=== PATIENT | female | born 1995 | race Caucasian/White ===

== ENCOUNTER 2016-08-25 19:06 | Emergency (ER) | payer SELFPAY ==
[~2016-08-25] VITALS: Ht 165.1 cm; Wt 72.6 kg
--- NOTE | 2016-08-25 19:12 | NUR ---
PT TO ER BED 09. PRESENTS W/ L ANKLE PAIN SWELLING W/ NOTED BRUISING S/P SLIP AND FALL AT MIDNIGHT. PT DENIES HEAD TRAUMA. STABLE VITALS. AWAITING MD MOMIN.
--- NOTE | 2016-08-25 19:21 | NUR ---
DR SINEGR AT BEDSIDE FOR EVAL.
--- NOTE | 2016-08-25 21:13 | NUR ---
splint applied. Patient discharged to home in stable condition. Written and verbal after care instructions given. Patient verbalizes understanding of instruction. Crutches dispensed. Pt instructed on proper use of crutches. Patient able to demonstrate correct use of crutches.
[2016-08-25 21:14] VITALS: BP 115/82
== END 2016-08-25 21:15 | disposition home or self-care (01) ==
LOC: ER 19:10
DX: S82.445A Nondisplaced spiral fracture of shaft of left fibula, initial encounter for closed fracture (principal); S82.245A Nondisplaced spiral fracture of shaft of left tibia, initial encounter for closed fracture; W10.8XXA Fall (on) (from) other stairs and steps, initial encounter; Y93.01 Activity, walking, marching and hiking; Y92.89 Other specified places as the place of occurrence of the external cause; Y99.9 Unspecified external cause status
CPT/HCPCS: 73610-TC; A4606; Z7610